=== PATIENT | female | born 1975 | race Hispanic/Latino ===

== ENCOUNTER → 2017-10-07 | Outpatient (CLI) | payer BC ==
[~2017-10-07] MED LIST: BUPR150T6 PO; CEFP200T PO; CETI10TA18 PO; FLUC100T4 PO; GABA300C10 PO; LEVO25TA4 PO; LEVO500T51 PO; PRED20TA PO; TOPI25TA8 PO; VORT10TA2 PO
--- NOTE | 2017-10-07 15:22 | DIREP ---
PROCEDURE:XRAY SPINE LUMBAR MIN 4 VWS COMPARISON:[facility], CR, XRAY SPINE LUMBAR 2-3 VWS, 09/23/2016, 02:48 PM. INDICATIONS:LOW BACK PAIN TECHNIQUE:AP, lateral, bilateral oblique, and coned down lateral views of the lumbar spine are provided. FINDINGS: ALIGNMENT:Normal. VERTEBRAE:Normal. DISK SPACES:Decreased disc height at L5-S1. Otherwise normal. SPONDYLOLISTHESIS:None. SACROILIAC JOINTS:Normal. OTHER:Normal. CONCLUSION:DDD at L5-S1. Otherwise normal examination. Dictated by: Dewayne Chakraborty M.D. on 10/07/2017 at 03:20 PM
--- NOTE | 2017-10-08 01:47 | DIREP ---
PROCEDURE:XRAY SPINE CERVICAL COMP COMPARISON:None. INDICATIONS:NECK PAIN FINDINGS: ALIGNMENT:Mild dextroscoliosis and reversal of normal lordotic curvature of the cervical spine consistent with muscle spasm. VERTEBRAE:Normal. DISK SPACES:Normal. No disc space narrowing. No neural foraminal narrowing. CERVICAL RIBS:None. OTHER:Normal. CONCLUSION:Muscle spasm with mild dextroscoliosis reversal of normal lordotic curvature of the cervical spine. No acute fracture. No other findings. Dictated by: Matty Harris M.D. on 10/08/2017 at 01:42 AM
== END | disposition home or self-care (01) ==
LOC: RAD 14:11
PROVIDERS: ATTEND Internal Medicine
DX: M51.37 Other intervertebral disc degeneration, lumbosacral region (principal); M40.292 Other kyphosis, cervical region
CPT/HCPCS: 72050; 72110

== ENCOUNTER 2017-12-17 16:45 | Emergency (ER) | payer BC ==
[~2017-12-17] VITALS: Ht 170.2 cm; Wt 125.2 kg
[2017-12-17 17:09] VITALS: BP 134/89
[2017-12-17] MEDS ORDERED: TOPI200C PO (17:18)
[2017-12-17] MEDS ORDERED: TRAM50TA PO (17:18)
[2017-12-17] MEDS ORDERED: MONT10TA6 PO (17:18)
[2017-12-17] MEDS ORDERED: BUPR300T4 PO (17:18)
--- NOTE | 2017-12-17 17:38 | ER.PDOC ---
General Chief Complaint: Cough/Congestion Stated Complaint: SOB,FATIGUE,COUGH Time seen by MD: 17:37 Source: patient Exam Limitations: no limitations History of Present Illness Initial Comments Cough for 5 days Timing/Duration: gradual Severity: moderate Associated Symptoms: runny nose, cough, chest pain (with inspiration) Allergies: Coded Allergies: hydrocodone (Verified Allergy, Severe, Hives, 12/17/17) NSAIDS (Non-Steroidal Anti-Inflamma (Verified Allergy, Unknown, 09/10/17) Penicillins (Unverified Allergy, Unknown, RASH,HIVES,SWELLING, 08/25/17) codeine (Verified Allergy, Unknown, RASH,SWELLING,HIVES, 08/25/17) Home Meds Reported Medications Montelukast Sodium (SINGULAIR) 10 Mg Tablet, 1 TAB PO DAILY, #90 TAB 1 Refill 12/17/17 Tramadol Hcl (TRAMADOL HCL) 50 Mg Tablet, 1 TAB PO Q4HR Y for PAIN, #90 TAB 12/17/17 Topiramate (Trokendi Xr) 200 Mg Cap.er.24h, 200 MG PO DAILY24 12/17/17 Bupropion Hcl (WELLBUTRIN XL) 300 Mg Tab.er.24h, 1 TAB PO DAILY, #90 TAB 3 Refills 12/17/17 Levothyroxine Sodium (LEVOTHYROXINE SODIUM) 25 Mcg Tablet, 1 TAB PO DAILY, #30 TAB 5 Refills 09/10/17 Cetirizine Hcl (CETIRIZINE HCL) 10 Mg Tablet, 1 TAB PO DAILY, #30 TAB 5 Refills 09/10/17 Vortioxetine Hydrobromide (Trintellix) 10 Mg Tablet, 10 MG PO DAILY, TABLET 09/10/17 Cefpodoxime Proxetil (CEFPODOXIME PROXETIL) 200 Mg Tablet, 100 MG PO BID, TABLET 09/10/17 Discontinued Reported Medications Fluconazole (FLUCONAZOLE) 100 Mg Tablet, 1 TAB PO DAILY, #10 TAB 09/10/17 Topiramate (TOPIRAMATE) 25 Mg Tablet, 1 TAB PO HS, #60 TAB 09/10/17 Gabapentin (GABAPENTIN) 300 Mg Capsule, 1 CAP PO TID Y for PAIN, #90 CAP 5 Refills 09/10/17 Levofloxacin (LEVAQUIN) 500 Mg Tablet, 1 TAB PO DAILY, #7 TAB 11/2/17 Prednisone (PREDNISONE) 20 Mg Tablet, 1 TAB PO DAILY, #5 TAB 09/10/17 Bupropion Hcl (BUPROPION XL) 150 Mg Tab.er.24h, 1 TAB PO DAILY, #30 TAB 09/10/17 Constitutional: no symptoms reported EENTM: see HPI Respiratory: see HPI Cardiovascular: see HPI Gastrointestinal: no symptoms reported Genitourinary: no symptoms reported Musculoskeletal: no symptoms reported All Other Systems: Reviewed and Negative Past Medical History Medical History: GERD, thyroid disease Surgical History: cholecystectomy, , tubal LMP (females 10-50): tubal Social History Smoking: non-smoker Alcohol Use: rarely Drug Use: none Physical Exam General Appearance: alert, no distress Nose: nose nml Throat: pharynx nml, airway nml Neck: nml inspection, supple Respiratory: no resp.distress, breath sounds nml Abdomen: non-tender, no organomegaly CVS: reg rate & rhythm, heart sounds nml Skin: color nml, no rash Extremities: non-tender, nml ROM, no pedal edema NEURO/PSYCH: oriented x 3, CN's nml as tested, motor nml, sensation nml, mood/ affect nml Results/Orders Results/Orders Laboratory Tests Test 12/17/17 17:35 White Blood Count 11.1 10^3/uL (4.5-11.0) Red Blood Count 4.89 10^6/uL (4.00-5.20) Hemoglobin 13.0 g/dL (12.0-15.0) Hematocrit 41.3 % (36.0-46.0) Mean Corpuscular Volume 84.5 fL (78-100) Mean Corpuscular Hemoglobin 26.6 pg (26-34) Mean Corpuscular Hemoglobin Concent 31.5 g/dL (33-37) Red Cell Distribution Width 15.0 % (11.5-14.5) Platelet Count 227 10^3/uL (150-400) Mean Platelet Volume 11.8 fL (7.8-11.0) Neutrophils (%) (Auto) 58.3 % (41.0-85.0) Lymphocytes (%) (Auto) 27.2 % (24.0-44.0) Monocytes (%) (Auto) 11.4 % (5.0-12.0) Neutrophils # (Auto) 6.5 10^3/uL (1.8-7.7) Lymphocytes # (Auto) 3.0 10^3/uL (1.0-4.8) Monocytes # (Auto) 1.3 10^3/uL (0.3-0.8) Absolute Immature Granulocyte (auto 0.05 10^3 u/L (0-2) Eosinophils % 2.3 % (0.0-5.0) Basophils % 0.3 % (0.0-0.2) Basophils # 0.0 10^3/uL (0.0-0.1) Eosinophil Count 0.3 10^3/uL (0.0-0.2) Sodium Level 139 mmol/L (132-145) Potassium Level 3.7 mmol/L (3.6-5.2) Chloride Level 103.0 mmol/L (96-109) Carbon Dioxide Level 22.9 mmol/L (20.0-32) Anion Gap 16.8 Blood Urea Nitrogen 11 mg/dL (7-18) Creatinine 1.10 mg/dL (0.59-1.40) Estimated GFR () 66.2 (>/=60) BUN/Creatinine Ratio 10.0 Glucose Level 95 mg/dL (70-110) Calcium Level 9.0 mg/dL (8.4-10.5) Total Bilirubin 0.3 mg/dL (0.2-1.0) Aspartate Amino Transf (AST/SGOT) 12 U/L (0-35) Alanine Aminotransferase (ALT/SGPT) 6 U/L (12-78) Alkaline Phosphatase 132 U/L (50-136) Troponin I < 0.02 ng/mL (0.00-0.05) Total Protein 8.1 g/dL (6.4-8.2) Albumin 3.5 g/dL (3.4-5.0) Globulin 4.6 Percent Immature Gran (Cell Imm) 0.50 % (0.00-0.50) EKG/XRAY/CT/US XRAY: chest (Normal) Departure Time of Disposition: 19:05 Disposition: 01 HOME, SELF-CARE Impression: Primary Impression: Acute URI Additional Impression: Pleurisy Condition: Stable Referrals: ANASTACIO TOSCANO MD (PCP) PRIMARY CARE PROVIDER Additional Instructions: Medrol dose pack Continue cough medicine at home F/U with your PCP next week Duration or Time Spent with Pa: 60 mins JUAN GALVEZ MD Dec 17, 2017 17:38
[2017-12-17 17:46] LABS: BASOPHIL % 0.3 % (0.0-0.2); EOSINOPHIL # 0.3 10^3/uL (0.0-0.2); EOSINOPHIL % 2.3 % (0.0-5.0); LYMPHOCYTES % 27.2 % (24.0-44.0); MEAN CELL HGB 26.6 pg (26-34); MEAN CELL HGB CONCENTRATION 31.5 g/dL (33-37); MEAN CORP VOLUME 84.5 fL (78-100); MEAN PLATELET VOLUME 11.8 fL (7.8-11.0); MONOCYTES # 1.3 10^3/uL (0.3-0.8); MONOCYTES % 11.4 % (5.0-12.0); NEUTROPHIL # 6.5 10^3/uL (1.8-7.7); NEUTROPHILS % 58.3 % (41.0-85.0); WHITE BLOOD CELL 11.1 10^3/uL (4.5-11.0)
--- NOTE | 2017-12-17 17:50 | PCM.EKG ---
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
[2017-12-17 18:00] VITALS: BP 138/87
[2017-12-17 18:07] LABS: ALANINE AMINOTRANSFERASE(ML) 6 U/L (12-78); ALKALINE PHOSPHATASE 132 U/L (50-136); ASPARTATE AMINO TRANSFERASE 12 U/L (0-35); CARBON DIOXIDE 22.9 mmol/L (20.0-32); GLUCOSE 95 mg/dL (70-110)
--- NOTE | 2017-12-17 18:52 | DIREP ---
PROCEDURE:CHEST 2 VIEWS COMPARISON:None. INDICATIONS:cough FINDINGS: LUNGS/PLEURA:Lungs are clear of focal consolidation. No evidence of pleural effusion. VASCULATURE:Unremarkable pulmonary vasculature. CARDIAC:No cardiac silhouette abnormality or cardiomegaly. CYNTHIA/MEDIASTINUM:No visible mass or adenopathy. BONES:No acute fracture. OTHER:No additional findings. CONCLUSION: 1. No acute cardiopulmonary changes. Dictated by: All Good M.D. on 12/17/2017 at 06:51 PM
[2017-12-17] MEDS ORDERED: KENALOG-40 IM STA (19:04)
[2017-12-17] MEDS ORDERED: KENALOG-40 ONE (19:06)
[2017-12-17 19:11] VITALS: BP 125/84
== END 2017-12-17 19:20 | disposition home or self-care (01) ==
LOC: ER 16:45
DX: R09.1 Pleurisy (principal); J06.9 Acute upper respiratory infection, unspecified; E07.9 Disorder of thyroid, unspecified; K21.9 Gastro-esophageal reflux disease without esophagitis; Z88.0 Allergy status to penicillin; Z90.49 Acquired absence of other specified parts of digestive tract; Z79.899 Other long term (current) drug therapy; Z88.5 Allergy status to narcotic agent
CPT/HCPCS: 36415; 71046; 80053; 84484; 85025; 93005; 96372; 99285; J3301

== ENCOUNTER 2018-07-24 19:45 | Emergency (ER) | payer BC ==
[~2018-07-24] VITALS: Ht 170.2 cm; Wt 117.9 kg
[~2018-07-24 19:45] MED LIST changes: +BUPR300T4 PO; +MONT10TA6 PO; +TOPI200C6 PO; +TRAM50TA PO
[2018-07-24 20:36] VITALS: BP 115/83
[2018-07-24 21:03] LABS: BILIRUBIN,URINE 1 MG/DL (NEGATIVE)
[2018-07-24 21:18] LABS: APPEARANCE,URINE CLOUDY (CLEAR); UA COLOR AMBER (YELLOW)
[2018-07-24] MEDS ORDERED: ROCEPHIN IM IM STA (21:29)
--- NOTE | 2018-07-24 21:29 | ER.PDOC ---
General Chief Complaint: Female Urogenital Problems Stated Complaint: POSS UTI Time seen by MD: 21:20 Source: patient Exam Limitations: no limitations History of Present Illness Initial Comments Dysuria, frequency for 1 week Timing/Duration: 1 week Severity/Quality: moderate, burning, cramping Radiation: flank (bilateral) Allergies: Coded Allergies: hydrocodone (Verified Allergy, Severe, Hives, 12/17/17) NSAIDS (Non-Steroidal Anti-Inflamma (Verified Allergy, Unknown, 09/10/17) Penicillins (Unverified Allergy, Unknown, RASH,HIVES,SWELLING, 08/25/17) codeine (Verified Allergy, Unknown, RASH,SWELLING,HIVES, 08/25/17) Home Meds Reported Medications Montelukast Sodium (SINGULAIR) 10 Mg Tablet, 1 TAB PO DAILY, #90 TAB 1 Refill 12/17/17 Tramadol Hcl (TRAMADOL HCL) 50 Mg Tablet, 1 TAB PO Q4HR PRN for PAIN, #90 TAB 12/17/17 Topiramate (Trokendi Xr) 200 Mg Cap.er.24h, 200 MG PO DAILY24 12/17/17 Bupropion Hcl (WELLBUTRIN XL) 300 Mg Tab.er.24h, 1 TAB PO DAILY, #90 TAB 3 Refills 12/17/17 Levothyroxine Sodium (LEVOTHYROXINE SODIUM) 25 Mcg Tablet, 1 TAB PO DAILY, #30 TAB 5 Refills 09/10/17 Cetirizine Hcl (CETIRIZINE HCL) 10 Mg Tablet, 1 TAB PO DAILY, #30 TAB 5 Refills 09/10/17 Vortioxetine Hydrobromide (Trintellix) 10 Mg Tablet, 10 MG PO DAILY, TABLET 09/10/17 Cefpodoxime Proxetil (CEFPODOXIME PROXETIL) 200 Mg Tablet, 100 MG PO BID, TABLET 09/10/17 Vital Signs First Vital Signs Date Time Temp Pulse Resp B/P (MAP) Pulse Ox O2 Delivery O2 Flow Rate FiO2 07/24/18 20:36 97.8 82 18 115/83 (94) 98 Room Air 97.8 Last Vital Signs Date Time Temp Pulse Resp B/P (MAP) Pulse Ox O2 Delivery O2 Flow Rate FiO2 07/24/18 20:36 97.8 82 18 98 Room Air 97.8 07/24/18 20:36 115/83 (94) Past Medical History Medical History: GERD, thyroid disease Surgical History: cholecystectomy, LMP (females 10-50): 1 month Social History Smoking: non-smoker Alcohol Use: none Drug Use: none Constitutional: no symptoms reported EENTM: no symptoms reported Respiratory: no symptoms reported Cardiovascular: no symptoms reported Gastrointestinal: see HPI Genitourinary: see HPI Musculoskeletal: no symptoms reported Skin: no symptoms reported Psychiatric/Neurological: no symptoms reported Endocrine: no symptoms reported Hematologic/Lymphatic: no symptoms reported Physical Exam General Appearance: No Apparent Distress, WD/WN HEENT: PERRL/EOMI, Normal ENT Inspection, TMs Normal, Pharynx Normal Neck: Non-Tender, Full Range of Motion, Supple, Normal Inspection Respiratory: chest non-tender, lungs clear, normal breath sounds, no respiratory distress, no accessory muscle use Cardiovascular: Normal Peripheral Pulses, Regular Rate, Rhythm, No Edema, No Gallop, No JVD, No Murmur Gastrointestinal: Normal Bowel Sounds, No Organomegaly, Tenderness (suprapubic area) Back: CVA Tenderness (R), CVA Tenderness (L) Extremities: Normal Range of Motion, Non-Tender, Normal Inspection, No Pedal Edema, No Calf Tenderness, Normal Capillary Refill, Pelvis Stable Neurologic/Psychiatric: director strategy II-XII NML as Tested, No Motor/Sensory Deficits, Alert, Normal Mood/Affect, Oriented x 3 Skin: Normal Color, Warm/Dry Lymphatic: No Adenopathy Results/Orders Results/Orders Laboratory Tests Test 07/24/18 21:05 Urine Collection Type VOID Urine Color ISSAC (YELLOW) Urine Appearance CLOUDY (CLEAR) Urine Bilirubin 1 MG/DL (NEGATIVE) Urine Ketones NEGATIVE (NEGATIVE) Urine Specific [place] 1.015 (1.005-1.035) Urine pH 9 (5.0-6.0) Urine Protein 30 mg/dL (NEGATIVE) Urine Urobilinogen 4.0 (NEGATIVE) Urine Nitrate POSITIVE (NEGATIVE) Urine Leukocyte Esterase NEGATIVE (NEGATIVE) Urine Blood NEGATIVE (NEGATIVE) Urine RBC NONE SEEN RBC/HPF (NONE Urine WBC 5-10 WBC/HPF (0-2) Urine Squamous Epithelial Cells FEW #/HPF (FEW) Urine Bacteria MANY (NONE SEEN) Urine Glucose NORMAL (NEGATIVE) Urine HCG, Qualitative NEGATIVE (NEGATIVE) Course Sepsis Screening Results: Posi: POSITIVE SEPSIS RISK Vitals & review Data Vital Sign - Last 24 Hours 07/24/18 07/24/18 07/24/18 20:36 20:36 20:36 Temp 97.8 97.8 97.8 97.8 97.8 97.8 Pulse 82 82 82 Resp 18 B/P (MAP) 115/83 (94) Pulse Ox 98 98 O2 Delivery Room Air Room Air Laboratory Tests Test 07/24/18 21:05 Urine Collection Type VOID Urine Color ISSAC Urine Appearance CLOUDY Urine Bilirubin 1 MG/DL Urine Ketones NEGATIVE Urine Specific [place] 1.015 Urine pH 9 Urine Protein 30 mg/dL Urine Urobilinogen 4.0 Urine Nitrate POSITIVE Urine Leukocyte Esterase NEGATIVE Urine Blood NEGATIVE Urine RBC NONE SEEN RBC/HPF Urine WBC 5-10 WBC/HPF Urine Squamous Epithelial Cells FEW #/HPF Urine Bacteria MANY Urine Glucose NORMAL Urine HCG, Qualitative NEGATIVE Departure Time of Disposition: 21:27 Disposition: 01 HOME, SELF-CARE Impression: Primary Impression: Cystitis Additional Impression: UTI (urinary tract infection) Condition: Stable Referrals: ANASTACIO TOSCANO MD (PCP) PRIMARY CARE PROVIDER Duration or Time Spent with Pa: 10 Problem Qualifiers EDUARDO BRAMBILA MD Jul 24, 2018 21:29
[2018-07-24] MEDS ORDERED: ROCEPHIN ONE (21:35)
[2018-07-24 21:50] VITALS: BP_SYST 115; BP_SYST 120; BP_DIAS 78; BP_DIAS 83
== END 2018-07-24 21:48 | disposition home or self-care (01) ==
LOC: ER 19:45
DX: N30.90 Cystitis, unspecified without hematuria (principal); K21.9 Gastro-esophageal reflux disease without esophagitis; E07.9 Disorder of thyroid, unspecified; Z88.0 Allergy status to penicillin; Z88.5 Allergy status to narcotic agent; Z90.49 Acquired absence of other specified parts of digestive tract; Z88.6 Allergy status to analgesic agent; Z79.2 Long term (current) use of antibiotics; Z79.899 Other long term (current) drug therapy
CPT/HCPCS: 81000; 81025; 87086; 96372; 99284; J0696

== ENCOUNTER → 2019-06-29 | Outpatient (CLI) | payer BC ==
--- NOTE | 2019-06-30 07:32 | DIREP ---
PROCEDURE:XRAY RIBS W/PA CHEST 3VWS-LT COMPARISON:[facility], , XRAY CHEST 2 VWS, 12/17/2017, 06:36 PM. INDICATIONS:ICD10:RO7.82 TECHNIQUE:PA chest and AP and oblique views of the left ribs were obtained. FINDINGS: LEFT RIBS:No fracture. LUNGS/PLEURA: No significant pulmonary parenchymal abnormalities. CARDIAC: Normal size cardiac silhouette and normal vascularity. MEDIASTINUM: Normal. BONES: Normal. OTHER: No additional findings. CONCLUSION: 1. No fracture or pneumothorax is seen. 2. Chest radiograph appears normal. Dictated by: Petros Hunter M.D. on 06/30/2019 at 07:29 AM
== END | disposition home or self-care (01) ==
LOC: RAD 18:40
PROVIDERS: ATTEND Internal Medicine
DX: R07.82 Intercostal pain (principal)
CPT/HCPCS: 71101-LT

== ENCOUNTER 2019-10-25 16:20 | Emergency (ER) | payer BC ==
[~2019-10-25] VITALS: Ht 167.6 cm; Wt 106.1 kg
[2019-10-25 16:59] LABS: BILIRUBIN,URINE 1 MG/DL (NEGATIVE)
[2019-10-25 17:00] LABS: APPEARANCE,URINE CLOUDY (CLEAR); UA COLOR YELLOW (YELLOW)
--- NOTE | 2019-10-25 17:04 | ER.PDOC ---
General Chief Complaint: Lower Back Pain or Injury Stated Complaint: UTI Time seen by MD: 16:45 Source: patient Exam Limitations: no limitations History of Present Illness Initial Comments Pt states her lower back hurts, the left lower kidney is painful and the pain radiates up to the mid back area, mild lower ABD pain, normal BM'S, pt denies chest pain or shortness of breath, pt states I think I have a kidney stone and UTI Timing/Duration: yesterday Severity/Quality: moderate Location of Pain: abdominal pain, low back pain, flank pain LMP (females 10-50): Sexual Reedy History: greater than 2 months ago Associated Symptoms: abdominal pain, dysuria, lower back pain Allergies: Coded Allergies: hydrocodone (Verified Allergy, Severe, Hives, 12/17/17) NSAIDS (Non-Steroidal Anti-Inflamma (Verified Allergy, Unknown, 09/10/17) Penicillins (Unverified Allergy, Unknown, RASH,HIVES,SWELLING, 08/25/17) codeine (Verified Allergy, Unknown, RASH,SWELLING,HIVES, 08/25/17) Home Meds Active Scripts Nitrofurantoin Monohyd/M-Cryst (MACROBID 100 MG CAPSULE) 100 Mg Capsule, 1 CAP PO BID for 10 Days, #20 CAP 0 Refills Prov:EMILY CASANOVA [employer] 10/25/19 Reported Medications Montelukast Sodium (SINGULAIR) 10 Mg Tablet, 1 TAB PO DAILY, #90 TAB 1 Refill 12/17/17 Tramadol Hcl (TRAMADOL HCL) 50 Mg Tablet, 1 TAB PO Q4HR PRN for PAIN, #90 TAB 12/17/17 Topiramate (Trokendi Xr) 200 Mg Cap.er.24h, 200 MG PO DAILY24 12/17/17 Bupropion Hcl (WELLBUTRIN XL) 300 Mg Tab.er.24h, 1 TAB PO DAILY, #90 TAB 3 Refills 12/17/17 Levothyroxine Sodium (LEVOTHYROXINE SODIUM) 25 Mcg Tablet, 1 TAB PO DAILY, #30 TAB 5 Refills 09/10/17 Cetirizine Hcl (CETIRIZINE HCL) 10 Mg Tablet, 1 TAB PO DAILY, #30 TAB 5 Refills 09/10/17 Vortioxetine Hydrobromide (Trintellix) 10 Mg Tablet, 10 MG PO DAILY, TABLET 09/10/17 Cefpodoxime Proxetil (CEFPODOXIME PROXETIL) 200 Mg Tablet, 100 MG PO BID, TABLET 09/10/17 Past Medical History Medical History: thyroid disease, other Surgical History: cholecystectomy, Social History Alcohol Use: none Drug Use: none Review of Systems Constitutional: no symptoms reported Respiratory: no symptoms reported Genitourinary: dysuria, frequency, flank pain, pain, urgency All Other Systems: Reviewed and Negative Physical Exam General Appearance: No Apparent Distress EENT: eyes nml inspection Cardiovascular/Respiratory: Regular Rate, Rhythm Abdomen: Tenderness Back: CVA tenderness Extremities: Normal Range of Motion Skin: Normal Color Results/Orders Results/Orders Orders - EMILY CASANOVA [employer] Urine Culture (10/25/19 16:47) Urinalysis (10/25/19 16:47) Xr Abd 1v (10/25/19 16:49) Ceftriaxone Sodium (Rocephin) (10/25/19 17:15) Vital Signs Date Time Temp Pulse Resp B/P (MAP) Pulse Ox O2 Delivery O2 Flow Rate FiO2 10/25/19 17:32 98.2 89 18 117/76 (90) 10/25/19 16:30 98.6 79 18 95 Laboratory Tests Test 10/25/19 16:52 Urine Collection Type VOID Urine Color YELLOW (YELLOW) Urine Appearance CLOUDY (CLEAR) H Urine Bilirubin 1 MG/DL (NEGATIVE) H Urine Ketones 5 mg/dL (NEGATIVE) H Urine Specific [place] 1.020 (1.005-1.035) Urine pH 5 (5.0-6.0) Urine Protein 100 mg/dL (NEGATIVE) H Urine Urobilinogen 1.0 (NEGATIVE) H Urine Nitrate POSITIVE (NEGATIVE) Urine Leukocyte Esterase 500/uL 2+ (NEGATIVE) Urine Blood 250 4+ (NEGATIVE) H Urine RBC TNTC RBC/HPF (NONE SEEN) H Urine WBC TNTC WBC/HPF (0-2) H Urine Squamous Epithelial Cells FEW #/HPF (FEW) Urine Bacteria FEW (NONE SEEN) H Urine Hyaline Casts 0-1 (NONE SEEN) Urine Glucose NORMAL (NEGATIVE) Microbiology Date/Time Source Procedure Growth Status 10/25/19 16:52 Urine,Clean Catch Urine Culture - Final Eschericha Coli Complete Departure Time of Disposition: 17:30 Disposition: 01 HOME, SELF-CARE Impression: Primary Impression: UTI (urinary tract infection) Condition: Stable Patient Instructions: Urinary Tract Infection Referrals: ANASTACIO TOSCANO MD (PCP) PRIMARY CARE PROVIDER Additional Instructions: Return if symptoms worsen. See PCP as needed Scripts Nitrofurantoin Monohyd/M-Cryst (MACROBID 100 MG CAPSULE) 100 Mg Capsule 1 CAP PO BID for 10 Days, #20 CAP 0 Refills Prov: EMILY CASANOVA NP 10/25/19 Duration or Time Spent with Pa: 20 minutes Return to Work/School Can a patient return to work?: No Can a patient return to school: No EMILY CSAANOVA NP Oct 25, 2019 17:04
[2019-10-25] MEDS ORDERED: NITR100C58 PO (17:12)
--- NOTE | 2019-10-25 17:13 | DIREP ---
PROCEDURE:XRAY ABDOMEN SINGLE VW COMPARISON:None. INDICATIONS:kidney pain, mild lower area ABD pain FINDINGS: BOWEL GAS PATTERN:Normal. CALCIFICATIONS:None significant. Multiple pelvic calcifications. LUNG BASES:Clear. BONES:Normal. OTHER:No additional findings. CONCLUSION:Unremarkable bowel gas pattern Dictated by: Myles Shields MD on 10/25/2019 at 05:11 PM
[2019-10-25] MEDS ORDERED: ROCEPHIN IM STA (17:15)
--- NOTE | 2019-10-25 17:27 | NUR ---
Rocephin 1gm IM given to R gluteus
[2019-10-25 17:32] VITALS: BP 117/76
== END 2019-10-25 17:30 | disposition home or self-care (01) ==
LOC: ER 16:20
DX: N39.0 Urinary tract infection, site not specified (principal); E07.9 Disorder of thyroid, unspecified; Z79.899 Other long term (current) drug therapy; Z88.0 Allergy status to penicillin; Z88.5 Allergy status to narcotic agent; Z88.6 Allergy status to analgesic agent; Z90.49 Acquired absence of other specified parts of digestive tract
CPT/HCPCS: 74018; 81000; 87077; 87086; 87186; 96372; 99284; J0696

== ENCOUNTER 2020-09-26 07:49 | Emergency (ER) | payer BC ==
[~2020-09-26] VITALS: Ht 170.2 cm; Wt 111.1 kg
[~2020-09-26 07:49] MED LIST changes: +NITR100C58 PO
[2020-09-26 08:10] VITALS: BP 149/98
--- NOTE | 2020-09-26 08:32 | ER.PDOC ---
General Chief Complaint: General Complaint Stated Complaint: COUGH,BODY ACHES,ABD PAIN,HEADACHE,N,V,D Time seen by MD: 08:20 Source: patient Exam Limitations: no limitations History of Present Illness Initial Comments Patient c/o malaise x 1 month with acute onset n/v/d and headache last night. No report of fever or SOB or cough. Timing/Duration: gradual, yesterday Severity: mild Associated Symptoms: sinus pain/drainage, sore throat Allergies: Coded Allergies: hydrocodone (Verified Allergy, Severe, Hives, 12/17/17) NSAIDS (Non-Steroidal Anti-Inflamma (Verified Allergy, Unknown, 09/10/17) Penicillins (Unverified Allergy, Unknown, RASH,HIVES,SWELLING, 08/25/17) codeine (Verified Allergy, Unknown, RASH,SWELLING,HIVES, 08/25/17) Home Meds Active Scripts Nitrofurantoin Monohyd/M-Cryst (MACROBID 100 MG CAPSULE) 100 Mg Capsule, 1 CAP PO BID for 10 Days, #20 CAP 0 Refills Prov:EMILY CASANOVA [employer] 10/25/19 Reported Medications Montelukast Sodium (SINGULAIR) 10 Mg Tablet, 1 TAB PO DAILY, #90 TAB 1 Refill 12/17/17 Tramadol Hcl (TRAMADOL HCL) 50 Mg Tablet, 1 TAB PO Q4HR PRN for PAIN, #90 TAB 12/17/17 Topiramate (Trokendi Xr) 200 Mg Cap.er.24h, 200 MG PO DAILY24 12/17/17 Bupropion Hcl (WELLBUTRIN XL) 300 Mg Tab.er.24h, 1 TAB PO DAILY, #90 TAB 3 Refills 12/17/17 Levothyroxine Sodium (LEVOTHYROXINE SODIUM) 25 Mcg Tablet, 1 TAB PO DAILY, #30 TAB 5 Refills 09/10/17 Cetirizine Hcl (CETIRIZINE HCL) 10 Mg Tablet, 1 TAB PO DAILY, #30 TAB 5 Refills 09/10/17 Vortioxetine Hydrobromide (Trintellix) 10 Mg Tablet, 10 MG PO DAILY, TABLET 09/10/17 Cefpodoxime Proxetil (CEFPODOXIME PROXETIL) 200 Mg Tablet, 100 MG PO BID, TABLET 09/10/17 Constitutional: malaise EENTM: nose congestion, throat pain Respiratory: no symptoms reported Cardiovascular: no symptoms reported Gastrointestinal: diarrhea, nausea, vomiting Genitourinary: no symptoms reported Musculoskeletal: no symptoms reported Skin: no symptoms reported Psychiatric/Neurological: no symptoms reported All Other Systems: Reviewed and Negative Past Medical History Medical History: no pertinent history Surgical History: , other (ablation) Family History Significant Family History: no pertinent family hx Social History Smoking: non-smoker Alcohol Use: occassionally Drug Use: none Physical Exam General Appearance: alert, no distress Eye: eyes nml inspection, lids & conjunct. nml, PERRL, no nystagmus Ear: ear nml Nose: rhinorrhea, mucosal edema Throat: pharyngeal erythema Neck: nml inspection, supple Respiratory: no resp.distress, breath sounds nml Abdomen: non-tender, no organomegaly CVS: reg rate & rhythm, heart sounds nml Skin: color nml, no rash, warm/dry Extremities: non-tender, no pedal edema NEURO/PSYCH: motor nml, mood/affect nml Results/Orders Results/Orders Orders - ANNEMARIE HENRY DO Influenza A&B (09/26/20 08:28) Strep Screen (09/26/20 08:28) Novel Coronavirus 2019([facility]) (09/26/20 08:28) Vital Signs Date Time Temp Pulse Resp B/P (MAP) Pulse Ox O2 Delivery O2 Flow Rate FiO2 09/26/20 08:10 98.2 86 16 98 09/26/20 08:10 98.2 86 16 149/98 (115) Room Air 09/26/20 08:10 98.2 86 16 Laboratory Tests Test 09/26/20 08:36 Influenza Type A Antigen NEGATIVE (NEG) Influenza B Immunofluorescence NEGATIVE (NEG) Group A Streptococcus Screen NEGATIVE (NEGATIVE) Progress Progress flu/strep negative ER DEPART Departure Time of Disposition: 08:54 Disposition: 01 HOME, SELF-CARE Impression: Primary Impression: Viral syndrome Additional Impression: Suspected 2019 novel coronavirus infection Condition: Stable Patient Instructions: Clear Liquid Diet, Nausea and Vomiting, Viral Syndrome Referrals: ANASTACIO TOSCANO MD (PCP) PRIMARY CARE PROVIDER Additional Instructions: You and your entire household need to sequester at home until your COVID19 results are known. Return to ER if you experience any difficulty breathing or swallowing, or for any emergent concerns. Maintain a strictly clear liquid diet for 24 hours (anything you can hold up to a light and see through)--no fruit juice, no caffeine. Gradually advance diet as tolerated after that--bland!! Follow up with your doctor next week for reevaluation. Duration or Time Spent with Pa: 15 min Problem Qualifiers ANNEMARIE HENRY DO Sep 26, 2020 08:32
== END 2020-09-26 08:58 | disposition home or self-care (01) ==
LOC: ER 07:49
DX: B34.9 Viral infection, unspecified (principal); Z20.828 Contact with and (suspected) exposure to other viral communicable diseases; Z79.899 Other long term (current) drug therapy; Z88.5 Allergy status to narcotic agent; Z88.6 Allergy status to analgesic agent; Z88.0 Allergy status to penicillin
CPT/HCPCS: 87070; 87635; 87804; 87880; 99283

== ENCOUNTER 2020-12-05 08:06 | Emergency (ER) | payer BC ==
[~2020-12-05] VITALS: Ht 170.2 cm; Wt 113.4 kg
[~2020-12-05 08:06] MED LIST changes: -BUPR150T6 PO; +BUPR150T7 PO
--- NOTE | 2020-12-05 08:06 | NUR ---
ARRIVAL PT ARRIVED TO ED WITH C/O BODYACHES, MIGRAINE, COUGH, RUNNY NOSE, CONGESTION, NAUSEA X 2 DAYS. PT REPORTS EXPOSURE TO COVID 9 DAYS AGO. BEDSIDE MONITORS APPLIED. VITAL SIGNS STABLE. BED IN LOW LOCKED POSITION. CALL LIGHT WITHIN REACH.
[2020-12-05 08:08] VITALS: BP 130/82
--- NOTE | 2020-12-05 08:20 | ER.PDOC ---
General Chief Complaint: Requesting Medical Care Stated Complaint: GENERAL Time seen by MD: 08:13 Source: patient Exam Limitations: no limitations History of Present Illness Initial Comments 2 days nonproductive cough, subjective fever and chills. Nausea but no vomiting. Nasal congestion. Headache and body aches. No chest pain or SOB. No change in taste or smell Allergies: Coded Allergies: hydrocodone (Verified Allergy, Severe, Hives, 12/17/17) NSAIDS (Non-Steroidal Anti-Inflamma (Verified Allergy, Unknown, 09/10/17) Penicillins (Unverified Allergy, Unknown, RASH,HIVES,SWELLING, 08/25/17) codeine (Verified Allergy, Unknown, RASH,SWELLING,HIVES, 08/25/17) Home Meds Active Scripts Nitrofurantoin Monohyd/M-Cryst (MACROBID 100 MG CAPSULE) 100 Mg Capsule, 1 CAP PO BID for 10 Days, #20 CAP 0 Refills Prov:EMILY CASANOVA YARN MAN 10/25/19 Reported Medications Montelukast Sodium (SINGULAIR) 10 Mg Tablet, 1 TAB PO DAILY, #90 TAB 1 Refill 12/17/17 Tramadol Hcl (TRAMADOL HCL) 50 Mg Tablet, 1 TAB PO Q4HR PRN for PAIN, #90 TAB 12/17/17 Topiramate (Trokendi Xr) 200 Mg Cap.er.24h, 200 MG PO DAILY24 12/17/17 Bupropion Hcl (WELLBUTRIN XL) 300 Mg Tab.er.24h, 1 TAB PO DAILY, #90 TAB 3 Refills 12/17/17 Levothyroxine Sodium (LEVOTHYROXINE SODIUM) 25 Mcg Tablet, 1 TAB PO DAILY, #30 TAB 5 Refills 09/10/17 Cetirizine Hcl (CETIRIZINE HCL) 10 Mg Tablet, 1 TAB PO DAILY, #30 TAB 5 Refills 09/10/17 Vortioxetine Hydrobromide (Trintellix) 10 Mg Tablet, 10 MG PO DAILY, TABLET 09/10/17 Cefpodoxime Proxetil (CEFPODOXIME PROXETIL) 200 Mg Tablet, 100 MG PO BID, TABLET 09/10/17 Past Medical History Medical History: no pertinent history Surgical History: , other Social History Drug Use: none Reviewed Nursing Reviewed: Vital Signs, Abn. Noted, Nursing Assessment Review of Systems Constitutional: see HPI, chills, fever, malaise Eyes: no symptoms reported Ears, Nose, Mouth, Throat: see HPI, nose discharge Respiratory: see HPI Cardiovascular: no symptoms reported Gastrointestinal: see HPI Genitourinary: no symptoms reported Musculoskeletal: see HPI Skin: no symptoms reported Psychiatric/Neurological: see HPI All Other Systems: Reviewed and Negative Physical Exam General Appearance: No Apparent Distress, WD/WN Head/Eyes: eyes nml inspection, no facial swelling, PERRL ENT: nml ENT inspection, pharynx nml Cardiovascular: Normal Peripheral Pulses, Regular Rate, Rhythm, No Edema Respiratory: chest non-tender, lungs clear, normal breath sounds, no respiratory distress, no accessory muscle use Gastrointestinal: Normal Bowel Sounds, Non Tender, Soft Back: Normal Inspection, No Vertebral Tenderness Extremities: Normal Range of Motion, Non-Tender Psychiatric: Alert, Oriented x 3 Cranial Nerves: Normal Speech Motor/Sensory: No Motor Deficit, No Sensory Deficit Skin: Warm/Dry, Normal Color Results/Orders Results/Orders Orders - SATINDER MCCLURE MD Covid19 Antigen Jo Shannan (12/05/20 08:21) Influenza A&B (12/05/20 08:21) Strep Screen (12/05/20 08:21) Xr Chest 1v (12/05/20 08:21) Vital Signs Date Time Temp Pulse Resp B/P (MAP) Pulse Ox O2 Delivery O2 Flow Rate FiO2 12/05/20 08:08 98.1 99 16 12/05/20 08:08 98.1 99 16 130/82 (98) 95 Room Air 12/05/20 08:08 98.1 99 16 95 Laboratory Tests Test 12/05/20 08:15 Influenza Type A Antigen NEGATIVE (NEG) Influenza B Immunofluorescence NEGATIVE (NEG) SARS-CoV-2 Antigen (Rapid) POSITIVE (NEGATIVE) *A Group A Streptococcus Screen NEGATIVE (NEGATIVE) Progress Progress covid positive, no respiratory distress and satting 100% on RA. CXR clear. Will DC on Z-lance an dsteroids. She is instructed to use daily aspirin, zince and vit D3 as well. Return with any worsening of condition otherwise follow up with PCP in 2-3 days. Self quarantine 14 days ER DEPART Departure Time of Disposition: 08:59 Disposition: 01 HOME, SELF-CARE Impression: Primary Impression: COVID-19 Condition: Stable Referrals: ANASTACIO TOSCANO MD (PCP) PRIMARY CARE PROVIDER Comments ZPak and prednisone 60mg daily for 5 days Duration or Time Spent with Pa: 20 SATINDER MCCLURE MD Dec 05, 2020 08:19
--- NOTE | 2020-12-05 08:48 | DIREP ---
PROCEDURE:CHEST 1 VIEW COMPARISON:[facility], CR, XRAY RIBS W/PA CHEST [id number], 06/29/2019, 07:14 PM. INDICATIONS:cough, fever FINDINGS: LUNGS/PLEURA:No significant pulmonary parenchymal abnormalities. No effusions. The left base is not completely included on the image. VASCULATURE:Normal. Unremarkable pulmonary vasculature. CARDIAC:Normal. No cardiac silhouette abnormality or cardiomegaly. MEDIASTINUM:Normal. No visible mass or adenopathy. BONES:Normal. No fracture or visible bony lesion. OTHER:Negative. CONCLUSION:No acute cardiopulmonary disease is seen. The lateral left lung base is not included on the film. Dictated by: Nolan Sharma M.D. on 12/05/2020 at 08:46 AM
== END 2020-12-05 09:20 | disposition home or self-care (01) ==
LOC: ER 08:06
DX: U07.1 COVID-19 (principal); Z79.899 Other long term (current) drug therapy; Z88.0 Allergy status to penicillin; Z88.5 Allergy status to narcotic agent; Z88.6 Allergy status to analgesic agent
CPT/HCPCS: 71045; 87070; 87426; 87804; 87880; 99284